=== PATIENT | male | born 1925 | race Caucasian/White ===

== ENCOUNTER 2017-01-31 09:48 | Emergency (ER) | payer MEDICARE, BC ==
[2017-01-31] MEDS ORDERED: Pantoprazole 40 MG Vial IVPUSH ONE (10:20)
[2017-01-31] MEDS ORDERED: Aluminum Hydroxide/Magnesium Hydroxide Susp 30 ML Cup PO STA (10:20)
--- NOTE | 2017-01-31 10:25 | EDM.PDOC ---
[id number] 4d CHEST PAIN Time Seen by Provider: 01/31/17 09:54 Source of Information: Reports: Patient, Family History Limitations: Reports: No Limitations - History of Present Illness INITIAL COMMENTS - FREE TEXT/NARRATIVE: 89 years old w m with a h/o CAD,Pacemaker pacemaker placement, woke up at 1 am because of epigastric cramping. Family called [facility]. Family was adviced to go to the nearest ED. As the pt arrived here in the ed, the patient stated he has intermittent stomach cramps, lasting seconds. He denied stress, spicy food or medication changes. No N/V/D or any other acute medical issues. BP was 121/87 puls 80 O2 sat 96% on RA. Onset: Today Onset Date: 01/31/17 Onset Time: 01:00 Duration: Hour(s):, Intermittent Location: Reports: Abdomen Quality: Reports: Dull, Throbbing Severity: Mild (3/10) Improves with: Reports: None Worsens with: Reports: None Context: Reports: Other (H/O CAD with a pacemaker in place, 100% paced) Associated Symptoms: Reports: Other Abdominal Pain Score (Numeric/FACES): 3 - Related Data Allergies Allergy/AdvReac Type Severity Reaction Status Date / Time codeine Allergy Cannot Verified 01/31/17 09:52 Remember Home Meds: Home Meds Carbidopa/Levodopa [Carbidopa-Levo 25-100 MG ODT] 1 tab PO TID 01/31/17 [History ] Latanoprost [Xalatan 0.005% Ophth Soln] 2.5 ml EYEBOTH BEDTIME 01/31/17 [History ] Metoprolol Tartrate [Lopressor] 1 tab PO DAILY 01/31/17 [History] Simvastatin [Zocor] 1 tab PO DAILY 01/31/17 [History] Venlafaxine [Effexor] 1 tab PO DAILY 01/31/17 [History] Warfarin [Coumadin] 1 tab PO DAILY 01/31/17 [History] Social & Family History - Tobacco Use Smoking Status *Q: Never Smoker Second Hand Smoke Exposure: No - Caffeine Use Caffeine Use: Reports: Coffee ED ROS GENERAL - Review of Systems Review Of Systems: See Below Constitutional: Reports: No Symptoms HEENT: Reports: No Symptoms Respiratory: Reports: No Symptoms Cardiovascular: Reports: No Symptoms Endocrine: Reports: No Symptoms GI/Abdominal: Reports: Abdominal Pain (epigastric pain) : Reports: No Symptoms Musculoskeletal: Reports: No Symptoms Skin: Reports: No Symptoms Neurological: Reports: No Symptoms Psychiatric: Reports: No Symptoms Hematologic/Lymphatic: Reports: No Symptoms Immunologic: Reports: No Symptoms ED EXAM, GENERAL - Physical Exam Exam: See Below Free Text/Narrative:: epigastric pain Exam Limited By: No Limitations General Appearance: Alert, WD/WN, No Apparent Distress Eye Exam: Bilateral Eye: Normal Inspection Ears: Normal External Exam, Normal Canal Ear Exam: Bilateral Ear: Auricle Normal Nose: Normal Inspection, Normal Mucosa Throat/Mouth: Normal Inspection, Normal Lips Head: Atraumatic, Normocephalic Neck: Normal Inspection, Supple, Non-Tender, Full Range of Motion Respiratory/Chest: No Respiratory Distress, Lungs Clear, Normal Breath Sounds Cardiovascular: Normal Peripheral Pulses, Regular Rate, Rhythm, No Edema, No Gallop, No JVD Peripheral Pulses: 1+: Femoral (L), Femoral (R) GI/Abdominal: Tender (epigastric tenderness, not pulsating) (Male) Exam: No Hernia Rectal (Males) Exam: Deferred Back Exam: Normal Inspection, Full Range of Motion Extremities: Normal Inspection, Normal Range of Motion, Non-Tender, No Pedal Edema Neurological: Alert, Oriented, CN II-XII Intact, Normal Cognition, Normal Gait Psychiatric: Normal Affect, Normal Mood Skin Exam: Warm, Dry, Intact, Normal Color, No Rash Lymphatic: No Adenopathy EKG INTERPRETATION EKG Date: 01/31/17 Time: 09:50 Rhythm: Other (ventricular paced) Rate (Beats/Min): 80 [place]: RAD-Right [place] Deviation P-Wave: Absent QRS: Normal ST-T: Normal QT: Normal Comparison: NA - No Prior EKG Course - Vital Signs Text/Narrative:: 89 years old w m with a h/o CAD,Pacemaker pacemaker placement, woke up at 1 am because of epigastric cramping 09/09. [facility] Family was adviced to go to the nearest ED. As the pt arrived here in the ed, the patient stated he has intermittent stomach cramps, lasting seconds. He denied stress, spicy food or medication changes. No N/V/D or any other acute medical issues. BP was 121/87 puls 80 O2 sat 96% on RA. PE: WNWD WM NAD with epigastric tenderness, not pulsating Labs: CBC WNL, Troponin 0.01, BMP (Glc was 124) were neg, INR was 2.24 ( pt is on Coumadin) CXR: CXR: NAD ECG: Ventricular paced Impression: H/O parkinson disease, epigastric tenderness Tx: Maalox, Prtonix Reexam: Pain subsided, pt was ambulaing in the ed fine, requesting to be D/C'D Consultation: [facility]emaker clinic [facility] was called requesting the pt to call the pacemaker clinic from from home as the pacemaker is check from home. Consultation Dr. Rudd, [facility]. He can see them this at 3.30 pm Plan: D/C with instructions Last Recorded V/S: Last Vital Signs Temp 36.8 C 01/31/17 09:54 Pulse 77 01/31/17 09:54 Resp 16 01/31/17 12:50 BP 118/71 01/31/17 12:50 Pulse Ox 100 01/31/17 12:50 - Orders/Labs/Meds Orders: Active Orders 24 hr Category Date Time Status CULTURE URINE [RM] Routine Lab 01/31/17 12:30 Received EKG 12 Lead [EK] Routine Ther 01/31/17 09:50 Ordered Labs: Laboratory Tests 01/31/17 01/31/17 01/31/17 Range/Units 10:25 10:25 10:25 WBC 8.5 (4.5-12.0) X10-3/uL RBC 4.08 L (4.30-5.75) x10(6)uL Hgb 12.3 (11.5-15.5) g/dL Hct 36.4 (30.0-51.3) % MCV 89.4 (80-96) fL MCH 30.2 (27.7-33.6) pg MCHC 33.8 (32.2-35.4) g/dL RDW 13.1 (11.5-15.5) % Plt Count 274 (125-369) X10(3)uL MPV 7.9 (7.4-10.4) fL Neut % (Auto) 80.3 (46-82) % Lymph % (Auto) 8.3 L (13-37) % [place] % (Auto) 9.1 (4-12) % Eos % (Auto) 2 (1.0-5.0) % Baso % (Auto) 0 (0-2) % Neut # (Auto) 6.8 (1.6-8.3) # Lymph # (Auto) 0.7 (0.6-5.0) # [place] # (Auto) 0.8 (0.0-1.3) # Eos # (Auto) 0.2 (0.0-0.8) # Baso # (Auto) 0.0 (0.0-0.2) # PT 24.7 H (8.7-11.1) INR 2.41 H (0.89-1.13) Sodium 136 (135-145) mmol/L Potassium 3.9 (3.5-5.3) mmol/L Chloride 102 (100-110) mmol/L Carbon Dioxide 26 (23-29) mmol/L BUN 14 (8-23) mg/dL Creatinine 0.9 (0.6-1.3) mg/dL Est Cr Clr Drug Dosing 55.64 mL/min Estimated GFR (MDRD) > 60 (>60) BUN/Creatinine Ratio 15.6 (9-20) Glucose 124 H (80-116) mg/dL Calcium 9.0 (8.6-10.2) mg/dL Total Bilirubin 0.4 (0.1-1.3) mg/dL Direct Bilirubin 0.1 (0.1-0.2) mg/dL AST 23 (5-27) IU/L ALT 5 L (14-26) IU/L Alkaline Phosphatase 85 (56-112) IU/L Creatine Kinase (60-160) IU/L Troponin I (0.02-0.06) NG/ML B-Natriuretic Peptide (0-100) pg/mL Total Protein 7.0 (6.0-8.0) g/dL Albumin 3.8 (2.9-4.5) g/dL Amylase 34 (28-100) U/L Urine Color (YELLOW) Urine Appearance (CLEAR) Urine pH (5.0-6.5) Ur Specific [place] (1.010-1.025) Urine Protein (NEGATIVE) mg/dL Urine Glucose (UA) (NEGATIVE) mg/dL Urine Ketones (NEGATIVE) mg/dL Urine Occult Blood (NEGATIVE) Urine Nitrite (NEGATIVE) Urine Bilirubin (NEGATIVE) Urine Urobilinogen (NEGATIVE) mg/dL Ur Leukocyte Esterase (NEGATIVE) Urine RBC (0) Urine WBC (0) Ur Squamous Epith Cells (NS,R,O) Urine Bacteria (NS) 01/31/17 01/31/17 01/31/17 Range/Units 10:25 10:25 10:25 WBC (4.5-12.0) X10-3/uL RBC (4.30-5.75) x10(6)uL Hgb (11.5-15.5) g/dL Hct (30.0-51.3) % MCV (80-96) fL MCH (27.7-33.6) pg MCHC (32.2-35.4) g/dL RDW (11.5-15.5) % Plt Count (125-369) X10(3)uL MPV (7.4-10.4) fL Neut % (Auto) (46-82) % Lymph % (Auto) (13-37) % [place] % (Auto) (4-12) % Eos % (Auto) (1.0-5.0) % Baso % (Auto) (0-2) % Neut # (Auto) (1.6-8.3) # Lymph # (Auto) (0.6-5.0) # [place] # (Auto) (0.0-1.3) # Eos # (Auto) (0.0-0.8) # Baso # (Auto) (0.0-0.2) # PT (8.7-11.1) INR (0.89-1.13) Sodium (135-145) mmol/L Potassium (3.5-5.3) mmol/L Chloride (100-110) mmol/L Carbon Dioxide (23-29) mmol/L BUN (8-23) mg/dL Creatinine (0.6-1.3) mg/dL Est Cr Clr Drug Dosing mL/min Estimated GFR (MDRD) (>60) BUN/Creatinine Ratio (9-20) Glucose (80-116) mg/dL Calcium (8.6-10.2) mg/dL Total Bilirubin (0.1-1.3) mg/dL Direct Bilirubin (0.1-0.2) mg/dL AST (5-27) IU/L ALT (14-26) IU/L Alkaline Phosphatase (56-112) IU/L Creatine Kinase 52 L (60-160) IU/L Troponin I < 0.01 L (0.02-0.06) NG/ML B-Natriuretic Peptide 100 (0-100) pg/mL Total Protein (6.0-8.0) g/dL Albumin (2.9-4.5) g/dL Amylase (28-100) U/L Urine Color (YELLOW) Urine Appearance (CLEAR) Urine pH (5.0-6.5) Ur Specific [place] (1.010-1.025) Urine Protein (NEGATIVE) mg/dL Urine Glucose (UA) (NEGATIVE) mg/dL Urine Ketones (NEGATIVE) mg/dL Urine Occult Blood (NEGATIVE) Urine Nitrite (NEGATIVE) Urine Bilirubin (NEGATIVE) Urine Urobilinogen (NEGATIVE) mg/dL Ur Leukocyte Esterase (NEGATIVE) Urine RBC (0) Urine WBC (0) Ur Squamous Epith Cells (NS,R,O) Urine Bacteria (NS) 01/31/17 Range/Units 12:30 WBC (4.5-12.0) X10-3/uL RBC (4.30-5.75) x10(6)uL Hgb (11.5-15.5) g/dL Hct (30.0-51.3) % MCV (80-96) fL MCH (27.7-33.6) pg MCHC (32.2-35.4) g/dL RDW (11.5-15.5) % Plt Count (125-369) X10(3)uL MPV (7.4-10.4) fL Neut % (Auto) (46-82) % Lymph % (Auto) (13-37) % [place] % (Auto) (4-12) % Eos % (Auto) (1.0-5.0) % Baso % (Auto) (0-2) % Neut # (Auto) (1.6-8.3) # Lymph # (Auto) (0.6-5.0) # [place] # (Auto) (0.0-1.3) # Eos # (Auto) (0.0-0.8) # Baso # (Auto) (0.0-0.2) # PT (8.7-11.1) INR (0.89-1.13) Sodium (135-145) mmol/L Potassium (3.5-5.3) mmol/L Chloride (100-110) mmol/L Carbon Dioxide (23-29) mmol/L BUN (8-23) mg/dL Creatinine (0.6-1.3) mg/dL Est Cr Clr Drug Dosing mL/min Estimated GFR (MDRD) (>60) BUN/Creatinine Ratio (9-20) Glucose (80-116) mg/dL Calcium (8.6-10.2) mg/dL Total Bilirubin (0.1-1.3) mg/dL Direct Bilirubin (0.1-0.2) mg/dL AST (5-27) IU/L ALT (14-26) IU/L Alkaline Phosphatase (56-112) IU/L Creatine Kinase (60-160) IU/L Troponin I (0.02-0.06) NG/ML B-Natriuretic Peptide (0-100) pg/mL Total Protein (6.0-8.0) g/dL Albumin (2.9-4.5) g/dL Amylase (28-100) U/L Urine Color Yellow (YELLOW) Urine Appearance Slightly cloudy (CLEAR) Urine pH 5.0 (5.0-6.5) Ur Specific [place] 1.020 (1.010-1.025) Urine Protein Negative (NEGATIVE) mg/dL Urine Glucose (UA) Normal (NEGATIVE) mg/dL Urine Ketones Negative (NEGATIVE) mg/dL Urine Occult Blood Negative (NEGATIVE) Urine Nitrite Negative (NEGATIVE) Urine Bilirubin Negative (NEGATIVE) Urine Urobilinogen 1 H (NEGATIVE) mg/dL Ur Leukocyte Esterase Large H (NEGATIVE) Urine RBC 0-5 (0) Urine WBC 40-50 H (0) Ur Squamous Epith Cells Few H (NS,R,O) Urine Bacteria Moderate H (NS) Meds: Medications Discontinued Medications Generic Name Dose Route Start Last Admin Trade Name Freq PRN Reason Stop Dose Admin Al Hydroxide/Mg Hydroxide 30 ml 01/31/17 10:20 01/31/17 10:38 Mag-Al Susp PO 01/31/17 10:21 30 ml ONETIME STA Administration Pantoprazole Sodium 40 mg 01/31/17 10:20 01/31/17 10:38 Protonix Iv IVPUSH 01/31/17 10:21 40 mg ONETIME ONE Administration Departure - Departure Time of Disposition: 12:47 Disposition: Home, Self-Care 01 Condition: Good Clinical Impression: Gastritis Qualifiers: Gastritis type: unspecified gastritis Chronicity: acute Gastritis bleeding: without bleeding Qualified Code(s): K29.00 - Acute gastritis without bleeding Referrals: Matt Rudd MD [Primary Care Provider] - Forms: ED Department Discharge Additional Instructions: Please take 1 table spoon of Maalox before bed time, please cont your medications, pleas call Joseline at the pacemaker clinic [facility] Tele phone number [phone] to check the pacemaker function over the the telephone. Please follow up as well with Dr. Rudd this at 3.30 pm at the [facility]. Please come back to the ED immediately if your symptoms get worse acutely. - My Orders Last 24 Hours: My Active Orders 01/31/17 09:50 EKG 12 Lead [EK] Routine 01/31/17 12:30 CULTURE URINE [RM] Routine - Assessment/Plan Last 24 Hours: My Active Orders 01/31/17 09:50 EKG 12 Lead [EK] Routine 01/31/17 12:30 CULTURE URINE [RM] Routine
--- NOTE | 2017-01-31 12:11 | CR ---
INDICATION: Chest pain, abdominal pain. CHEST: An AP upright view of the chest was obtained 01/31/2017. No comparisons were available. Bipolar pacemaker leads are noted in place. The heart appeared normal in size and shape. The aorta is tortuous to a moderate degree with calcification in the arch. The lungs appear to be slightly hyperaerated with slightly flattened diaphragm leaves and some interdigitation, raising question of COPD. There are some heavy markings at the left lung base and right costophrenic angle. These could represent minimal areas of patchy pneumonia or possibly fibrosis. No gross consolidating pneumonia or definite effusion was seen. IMPRESSION: No definite acute process. MTDD
[2017-01-31 13:27] VITALS: BP 118/71
== END 2017-01-31 13:00 | disposition home or self-care (01) ==
LOC: FB.ED 09:48
DX: K29.00 Acute gastritis without bleeding (principal); I25.10 Atherosclerotic heart disease of native coronary artery without angina pectoris; Z95.0 Presence of cardiac pacemaker; Z88.5 Allergy status to narcotic agent; Z79.01 Long term (current) use of anticoagulants
CPT/HCPCS: 36415; 71010; 80048; 80076; 81001; 82150; 82550; 83880; 84484; 85025; 85610; 87086; 93005; 96374; 99284; A9270; C9113